=== PATIENT | female | born 1950 | race Caucasian/White ===

== ENCOUNTER → 2016-08-26 | Outpatient (CLI) | payer MEDICARE, BC ==
[~2016-08-26] MED LIST: ATENOLOL PO; CHOLESTID; CRESTOR PO; MULTI-VITAMIN1 TAB PO; NIASPAN PO; POSTURE600 MG PO; PREMARIN PO
--- NOTE | ~2016-08-26 | MY11 ---
[facility] A Service of [facility] RADIOLOGY TEXT RESULTS PATIENT: FRANCESCA BRAR LOCATION: [facility] : 50 UNIT #: [id number] AGE: [address]: Mahsa Garber MD SEX: F ORDER DR: [id number] [facility]. [place], [place] [address] [id number] O MR#: [id number] Acc #: [id number] NAME: FRANCESCA BRAR : 1950 SEX: F STUDY DATE/TIME: 08/26/2016 12:21 UNIT: [facility] ROOM: STUDY DESCRIPTION: MY Mammogram Screening Dig Alonzo Attending Physician: Mahsa Garber M.D. Referring Physician: Mahsa Garber M.D. Ordering Physician: Mahsa Garber M.D. Primary Care Physician: Mahsa Garber M.D. MEDICAL IMAGING REPORT This report is preliminary unless electronic signature is present EXAM Digital screening mammogram, 08/26/2016. HISTORY A 66 year old woman no risk elevation. Previous cyst aspiration. Annual screening COMPARISON Mammograms date to 02/09/2010 with most recent 08/24/2015. Digital imaging of each breast was completed utilizing standard craniocaudal and mediolateral-oblique projections. Review and interpretation of digital mammograms include a second review in conjunction with FDA-approved CAD device. There is an overall increase in the parenchymal presentation bilaterally with a generalized fibronodular pattern in each breast. There are no breast masses and I see no asymmetry in the parenchymal presentation. There are no suspicious microcalcifications and I see no architectural disturbance. IMPRESSION Benign mammogram. One-year followup recommended. Patients over the age of 40 are entered into a reminder system with target due date for the next mammogram. A result letter will also be sent to the patient. BIRADS: 2 Benign finding Dictated by... [facility] A Service of [facility] RADIOLOGY TEXT RESULTS PATIENT: FRANCESCA BRAR LOCATION: [facility] : 50 UNIT #: [id number] AGE: [address]: Mahsa Garber MD SEX: F ORDER DR: Angel Cullen M.D. THIS IS AN ELECTRONICALLY VERIFIED REPORT Angel Cullen M.D. at 08/26/2016 2:26 PM Suki TD: 08/26/2016 13:43 JOB #: [id number] MEDICAL IMAGING REPORT Page 1 of 1 COPY
== END | disposition home or self-care (01) ==
LOC: CWCC 11:23
DX: Z12.31 Encounter for screening mammogram for malignant neoplasm of breast (principal); Z98.890 Other specified postprocedural states
CPT/HCPCS: G0202